=== PATIENT | male | born 1985 | race African-American/Black ===

== ENCOUNTER 2017-03-20 03:01 | Emergency (ER) | payer SELFPAY ==
[2017-03-20] MEDS ORDERED: Adacel (T-DAP) 0.5 ML VIAL ONE (03:51)
[2017-03-20 04:20] LABS: #Lymphocytes 1.2 thou/uL (1.20-3.40); #Monocytes 0.8 thou/uL (0.11-0.59); %Basophils 0.4 % (0.0-1.0); %Eosinophils 0.1 % (0.0-10.0); %Lymphocytes 13.1 % (21.0-51.0); %Monocytes 8.4 % (0.0-10.0); Hematocrit 43.6 % (42.0-52.0); Mean Platelet Volume 8.7 fL (7.4-10.4); Red Blood Cell (RBC) Count 4.83 mill/uL (4.70-6.10); White Blood Cell (WBC) Count 8.9 thou/uL (4.8-10.8)
[2017-03-20 04:28] LABS: Anion Gap 11 mmol/L (10-20); BUN (Urea Nitrogen) 9 mg/dL (8.9-20.6); Calc. Creatinine Clearance 0 mL/min (70-130); Calcium 10.8 mg/dL (7.8-10.44); Carbon Dioxide 25 mmol/L (22-29); Chloride 108 mmol/L (98-107); Estimated GFR-MDRD Greater than 90
[2017-03-20] MEDS ORDERED: Amoxicillin/Potassium Clav 875 MG TAB ONE ×2 (04:59→05:01)
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
== END 2017-03-20 05:05 | disposition home or self-care (01) ==
LOC: EDBD 03:01 → ERS 03:01
DX: S21.232A Puncture wound without foreign body of left back wall of thorax without penetration into thoracic cavity, initial encounter (principal); W34.00XA Accidental discharge from unspecified firearms or gun, initial encounter
CPT/HCPCS: 36415; 71020; 80048; 85025; 90471; 90715

== ENCOUNTER 2018-05-10 18:03 | Emergency (ER) | payer OTHER, SELFPAY ==
--- NOTE | 2018-05-10 18:42 | RAD ---
LEFT FIFTH FINGER THREE VIEWS: 05/10/18 HISTORY: This was done following reduction of an obvious dislocation. Three views of the fifth finger demonstrates some tiny osseous foci on the volar aspect of the fifth finger at the proximal interphalangeal joint level which could represent very tiny bone fragments sec ondary to a previous dislocation. There is no evidence for dislocation at this time. IMPRESSION: Several very tiny bone densities on the volar aspect of the fifth finger at the proximal interphalang eal joint level, possibly representing very tiny residual fracture fragments. No evidence for disloca tion at this time. POS: PATRICK
== END 2018-05-10 18:38 | disposition home or self-care (01) ==
LOC: SCSER 18:03
DX: S63.287A Dislocation of proximal interphalangeal joint of left little finger, initial encounter (principal); Z79.899 Other long term (current) drug therapy; X58.XXXA Exposure to other specified factors, initial encounter; Y93.67 Activity, basketball
CPT/HCPCS: 26770